=== PATIENT | male | born 1970 | race Caucasian/White ===

== ENCOUNTER 2020-06-08 11:03 | Emergency (ER) | payer OTHER, SELFPAY ==
[2020-06-08] VITALS (20 sets, daily range): BP systolic 118–165; BP diastolic 69–101; PULSE 65–88; RESP 5–39; TEMP 36.2; O2SAT 81–100; BMI 29.4
--- NOTE | 2020-06-08 11:12 | DI.RAD.S_ITS ---
PROCEDURE: XR CHEST 1V INDICATIONS: chest pain TECHNIQUE: One view of the chest was acquired. COMPARISON: [facility], CR, XR THORACIC SPINE 3VW, 08/18/2016, 10:14. FINDINGS: Surgical changes and devices: None. Lungs and pleura: No definite focal airspace opacity. No pleural effusions or pneumothorax. Mediastinum: Mediastinal contours appear unchanged. Heart size is prominent. Bones and chest wall: No suspicious bony lesions. Overlying soft tissues appear unremarkable. IMPRESSION: No definite focal airspace opacity. Prominent heart size. Dictated by: Jaylan Haddad M.D. on 06/08/2020 at 11:47 Approved by: Jaylan Haddad M.D. on 06/08/2020 at 11:47
--- NOTE | 2020-06-08 11:29 | ED.SYNCOPE ---
HPI - Syncope General Chief Complaint: Syncope Stated Complaint: episode this morning passed out driving to job Time Seen by Provider: 06/08/20 11:14 Source: patient and family Mode of arrival: Ambulatory Limitations: no limitations History of Present Illness HPI narrative: Patient a 49-year-old male's history hypertension noncompliant and smoking presents after a syncopal episode. 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 His friends were with him and state he passed out for about 10 minutes. EMS was called and arrived they tried to transport him however patient refused. He wanted would be walk-in clinic who sent him to the ED for evaluation. This morning he says he was feeling okay. He denies any fever chills cough chest pain palpitations. He says he did not eat breakfast it is not typical for him to eat breakfast he has had 3 cups of coffee. MD complaint: loss of consciousness and collapsed Duration of episode: 10 -: minutes(s) Related Data Home Medications Medication Instructions Recorded Confirmed No Known Home Medications 06/08/20 06/08/20 Allergies Allergy/AdvReac Type Severity Reaction Status Date / Time No Known Drug Allergies Allergy Verified 06/08/20 11:21 Review of Systems Review of Systems ROS Unobtainable: All systems reviewed & are unremarkable except as noted in HPI and below Constitutional Constitutional: Denies chills, Denies fever(s), Denies lethargy and Denies weakness Eyes Eyes: Denies change in vision, Denies eye discharge, Denies irritation and Denies loss of vision Cardiovascular Cardiovascular: Denies chest pain, Reports syncope, Denies irregular heart rhythm, Denies leg edema, Denies lightheadedness, Denies palpitations, Reports dyspnea, Denies dyspnea on exertion and Denies orthopnea Respiratory Respiratory: Denies cough, Reports dyspnea, Denies dyspnea on exertion and Reports wheezing Gastrointestinal Gastrointestinal: Denies abdominal pain, Denies change in bowel habits, Denies diarrhea, Denies nausea and Denies vomiting Musculoskeletal Musculoskeletal: Denies back pain and Denies muscle cramps Integumentary/Breasts Skin/Breast: Denies pruritus, Denies erythema, Denies rash and Denies wounds Neurologic Neurologic: Reports syncope, Denies loss of vision and Denies weakness Endocrine Endocrine: Denies palpitations Allergic/Immunologic Allergic/Immunologic: Reports wheezing Patient History Medical History Smoker Social History Smoking Status: Current every day smoker Smoking Status: Current every day smoker tobacco type: cigarettes alcohol intake frequency: 0-2 drinks per day Substance Use Type: does not use Exam Initial Vital Signs Initial Vital Signs: Vital Signs Temperature 97.1 F L 06/08/20 11:05 Pulse Rate 85 06/08/20 11:05 Respiratory Rate 18 06/08/20 11:05 Blood Pressure 165/101 H 06/08/20 11:05 Pulse Oximetry 99 06/08/20 11:05 GENERAL: Alert 49-year-old male appears older than stated age and in no acute distress. HEENT: Head atraumatic,EOMI, pupils reactive, face symmetric, moist mucous membranes CARDIOVASCULAR: Regular rate and rhythm without murmurs, rubs or gallops. RESPIRATORY: Breath sounds equal bilaterally, no wheezes rales or rhonchi. ABDOMEN: Soft, nontender. Normoactive bowel sounds all 4 quadrants. No guarding or rebound. EXTREMITIES: Normal range of motion, no clubbing or edema. Neurovascularly intact NEUROLOGICAL: Alert and oriented x4.Normal gait and speech. Cranial nerves II through XII grossly intact. Good ksosan-va-fpbl, good gvmy-wj-pwps, strength equal bilaterally, no dysarthria or aphasia, sensation in tact to soft touch bilaterally, no visual changes, no facial droop SKIN: Warm, dry, no laceration, no petechiae, no rashes or lesions. Scores NIH Stroke Scale Level of Conciousness: Alert, keenly responsive Ask month/age: Answers both questions correctly. Open/close eyes, close hand: Performs both tasks correctly Best gaze horizontal: Normal Visual nam: No visual loss Facial palsy: Normal symetrical movement Left arm drift: No drift for full 10 sec Right arm drift: No drift for full 10 sec Left leg drift: No drift for full 5 sec Right leg drift: No drift for full 5 sec Limb ataxia: Absent Sensory on face/arms/legs: Normal, no sensory loss Best language: No aphasia, normal Dysarthria: Normal Extinction or inattention: No abnormality Total NIH Stroke scale score: 0 Course Orders Ordered: ED Orders 06/08/20 11:12 XR chest 1V Stat EKG-12 Lead Stat 06/08/20 11:19 BNP [NT-proBNP (BNP-Adult 18+)] Stat Complete Blood Count AUTO DIFF Stat Comprehensive Metabolic Panel Stat D Dimer Stat Lipase Stat Magnesium Stat Partial Thromboplastin Time Stat Prothrombin Time INR Stat Troponin & CK Cardiac Panel Stat 06/08/20 11:29 COVID19 Stat 06/08/20 11:30 CT head/brain wo con Stat 06/08/20 12:05 CT angio head and neck Stat 06/08/20 14:16 Consult to CIRCULATION ASSISTANT - Long Term Care Social Worker Stat Discontinued Medications Albuterol/Ipratropium (Albuterol/Ipratropium 3 Ml Ampul) 3 ml INH NOW ONE Stop: 06/08/20 14:01 Last Admin: 06/08/20 14:01 Dose: 3 ml Documented by: LIZZEI Aspirin (Aspirin 81 Mg Chew Tab) 324 mg PO NOW ONE Stop: 06/08/20 11:13 Last Admin: 06/08/20 11:37 Dose: 324 mg Documented by: NNEKA Vital Signs Vital signs: Vital Signs - 8 hr 06/08/20 11:05 06/08/20 11:10 06/08/20 11:11 Temperature 97.1 F L Pulse Rate 85 86 Respiratory Rate 18 22 Blood Pressure 165/101 H 165/101 H Pulse Oximetry 99 99 06/08/20 11:30 06/08/20 11:53 06/08/20 12:00 Temperature Pulse Rate 80 81 81 Respiratory Rate 22 20 23 Blood Pressure 156/88 H 139/78 Pulse Oximetry 97 98 97 06/08/20 12:15 06/08/20 12:30 06/08/20 12:49 Temperature Pulse Rate 79 76 84 Respiratory Rate 21 18 Blood Pressure 118/75 Pulse Oximetry 97 98 93 06/08/20 12:50 06/08/20 13:00 06/08/20 13:01 Temperature Pulse Rate 76 88 77 Respiratory Rate 19 28 H 19 Blood Pressure 145/80 H 146/73 H Pulse Oximetry 98 81 L 98 06/08/20 13:15 06/08/20 13:30 06/08/20 13:31 Temperature Pulse Rate 67 66 65 Respiratory Rate 5 L 39 H 36 H Blood Pressure 125/69 Pulse Oximetry 98 96 97 06/08/20 13:45 06/08/20 14:00 06/08/20 14:01 Temperature Pulse Rate 69 70 74 Respiratory Rate 24 30 H 14 Blood Pressure 126/75 Pulse Oximetry 98 100 100 06/08/20 14:15 06/08/20 14:30 Temperature Pulse Rate 73 74 Respiratory Rate 19 31 H Blood Pressure Pulse Oximetry 98 MDM - Syncope Lab Data Attestation: I reviewed the patient's lab results. Result diagrams: 06/08/20 11:19 06/08/20 11:19 Labs: Lab Results 06/08/20 06/08/20 06/08/20 Range/Units 11:19 11:19 11:19 WBC 14.0 H (4.5-11.0) X10^3/uL RBC 5.14 (4.5-5.9) X10^6/uL Hgb 15.2 (13.5-17.5) g/dL Hct 46.2 (41-53) % MCV 89.8 (80-100) fL MCH 29.5 (26-34) PG MCHC 32.8 (30-36) % RDW 14.8 (11.6-14.8) % Plt Count 236 (150-400) X10^3/uL Neut % (Auto) 87.1 H (50-75) % Lymph % (Auto) 9.0 L (25-40) % [place] % (Auto) 2.9 L (3-14) % Eos % (Auto) 0.5 L (2-4) % Baso % (Auto) 0.5 (0-2) % Neut # (Auto) 95953 H (1381-0625) /uL Lymph # (Auto) 1300 (7414-7321) /uL [place] # (Auto) 400 (0-900) /uL Eos # (Auto) 100 (0-450) /uL Baso # (Auto) 100 (0-100) /uL PT 10.9 (10.1-12.7) SECONDS INR 1.0 (0.9-1.3) APTT 30 (26.4-36.2) SECONDS D-Dimer < 200 (<230) ng/mL Sodium 137 (137-145) mmol/L Potassium 4.0 (3.4-5.1) mmol/L Chloride 103 (98-107) mmol/L Carbon Dioxide 29 (22-32) mmol/L BUN 10 (9-20) mg/dL Creatinine 0.54 L (0.66-1.25) mg/dL Estimated GFR > 60.0 (>60) mL/min BUN/Creatinine Ratio 18.5 (6-22) Glucose 157 H (70-100) mg/dL Calcium 9.3 (8.4-10.2) mg/dL Magnesium 2.0 (1.6-2.3) mg/dL Total Bilirubin 0.3 (0.2-1.3) mg/dL AST 24 (17-59) IU/L ALT 24 (<50) IU/L Alkaline Phosphatase 80 (38-126) U/L Total Creatine Kinase 72 (55-170) U/L CK-MB (CK-2) TNP CK-MB (CK-2) Rel Index TNP Troponin I < 0.012 (0.01-0.034) ng/mL NT-Pro-B Natriuret Pep 96 (<125) pg/mL Total Protein 7.5 (6.3-8.2) g/dL Albumin 4.4 (3.5-5.0) g/dL Globulin 3.1 (1.7-4.1) g/dL Albumin/Globulin Ratio 1.4 (1.0-2.8) Lipase 35 (23-300) U/L SARS-CoV-2 (PCR) (Negative) 06/08/20 06/08/20 Range/Units 11:19 11:29 WBC (4.5-11.0) X10^3/uL RBC (4.5-5.9) X10^6/uL Hgb (13.5-17.5) g/dL Hct (41-53) % MCV (80-100) fL MCH (26-34) PG MCHC (30-36) % RDW (11.6-14.8) % Plt Count (150-400) X10^3/uL Neut % (Auto) (50-75) % Lymph % (Auto) (25-40) % [place] % (Auto) (3-14) % Eos % (Auto) (2-4) % Baso % (Auto) (0-2) % Neut # (Auto) (3131-7722) /uL Lymph # (Auto) (5868-8575) /uL [place] # (Auto) (0-900) /uL Eos # (Auto) (0-450) /uL Baso # (Auto) (0-100) /uL PT (10.1-12.7) SECONDS INR (0.9-1.3) APTT (26.4-36.2) SECONDS D-Dimer Cancelled (<230) ng/mL Sodium (137-145) mmol/L Potassium (3.4-5.1) mmol/L Chloride (98-107) mmol/L Carbon Dioxide (22-32) mmol/L BUN (9-20) mg/dL Creatinine (0.66-1.25) mg/dL Estimated GFR (>60) mL/min BUN/Creatinine Ratio (6-22) Glucose (70-100) mg/dL Calcium (8.4-10.2) mg/dL Magnesium (1.6-2.3) mg/dL Total Bilirubin (0.2-1.3) mg/dL AST (17-59) IU/L ALT (<50) IU/L Alkaline Phosphatase (38-126) U/L Total Creatine Kinase (55-170) U/L CK-MB (CK-2) CK-MB (CK-2) Rel Index Troponin I (0.01-0.034) ng/mL NT-Pro-B Natriuret Pep (<125) pg/mL Total Protein (6.3-8.2) g/dL Albumin (3.5-5.0) g/dL Globulin (1.7-4.1) g/dL Albumin/Globulin Ratio (1.0-2.8) Lipase (23-300) U/L SARS-CoV-2 (PCR) Negative (Negative) Imaging Data Chest x-ray: Radiologist's Impression: PROCEDURE: XR CHEST 1V INDICATIONS: chest pain TECHNIQUE: One view of the chest was acquired. COMPARISON: [facility], CR, XR THORACIC SPINE 3VW, 08/18/2016, 10:14. FINDINGS: Surgical changes and devices: None. Lungs and pleura: No definite focal airspace opacity. No pleural effusions or pneumothorax. Mediastinum: Mediastinal contours appear unchanged. Heart size is prominent. Bones and chest wall: No suspicious bony lesions. Overlying soft tissues appear unremarkable. IMPRESSION: No definite focal airspace opacity. Prominent heart size. Dictated by: Jaylan Haddad M.D. on 06/08/2020 at 11:47 CT scan - head: Radiologist's Impression: PROCEDURE: CT HEAD/BRAIN WO CON INDICATIONS: syncope TECHNIQUE: Noncontrast 4.5 mm thick angled axial sections acquired from the foramen magnum to the vertex, with coronal and sagittal reformats. For radiation dose reduction, the following was used: automated exposure control, adjustment of mA and/or kV according to patient size. COMPARISON: None. FINDINGS: Image quality: Excellent. CSF spaces: Basal cisterns are patent. No extra-axial fluid collections. Ventricles are normal in size and shape. Brain: No midline shift. No intracranial masses or hemorrhage. Arredondo-white matter interface is normal. Skull and face: Calvarium and visualized facial bones are intact, without suspicious lesions. Sinuses: Visualized sinuses and mastoids are clear. IMPRESSION: No CT evidence of acute intracranial pathology. Dictated by: Tyree Padilla M.D. on 06/08/2020 at 12:31 CTA - brain/neck: Radiologist's Impression: PROCEDURE: CT ANGIO HEAD AND NECK INDICATIONS: syncope TECHNIQUE: Noncontrast images were performed earlier in the day and not repeated. After the administration of intravenous contrast, 1 mm thick sections acquired from the aortic arch through the [place] of Anders. Post-contrast 4.5 mm thick sections then re-acquired from the foramen magnum to the vertex. 3-dimensional uaikeky-lccqrxjgr-qqphimqncz (MIP) and/or volume rendering reformats were acquired of the central intracranial vasculature and neck separately. COMPARISON: [facility], CT, CT HEAD/BRAIN WO CON, 06/08/2020, 11:44. FINDINGS: Image quality: Excellent. BRAIN: CSF spaces: Ventricles are normal in size and shape. Basal cisterns are patent. No extra-axial fluid collections. Brain: No midline shift. No intracranial bleeds or masses. Arredondo-white matter interface appears intact. Skull and face: Calvarium and facial bones appear intact, without suspicious lesions. Orbits appear normal. Sinuses: Sinuses and mastoids are clear. HEAD CT ANGIOGRAPHY: Anterior circulation: Intracranial internal carotid arteries are normal in size and flow. There is a hypoplastic left A1 segment, with a corresponding robust right A1 segment. This is considered to be a normal developmental variant of the [place] of [place], of typically no clinical consequence. The flow within the paired anterior cerebral arteries is otherwise normal and symmetric. The flow within the middle cerebral arteries is normal and symmetric. The anterior communicating artery is seen. No aneurysms are seen. Posterior circulation: Visualized portions of the vertebral arteries demonstrate normal caliber, and join to form a normal appearing basilar artery. Flow within the posterior cerebral arteries is normal and symmetric. No aneurysms are seen. NECK CT ANGIOGRAPHY: Carotid system: The great vessels demonstrate a conventional anatomy as they arise from the aortic arch. The origins of the common carotid arteries appear patent. The common carotid arteries demonstrate normal caliber and courses. The bifurcation regions are both widely patent. The internal carotid arteries demonstrate normal calibers and courses. Posterior circulation: The origins of the vertebral arteries both appear widely patent. The more superior extracranial portions of both vertebral arteries also demonstrate normal courses and calibers. They join to form a normal appearing basilar artery. Soft tissues: Visualized neck soft tissues demonstrate no suspicious abnormalities. Bones: No suspicious bony lesions. Visualized cervical spine appears normally aligned. Degenerative changes are seen, which are worst at the C6-C7. IMPRESSION: No significant intracranial arterial abnormality is seen. Toe alignment abnormalities are seen. Incidental note is made of: Hypoplastic left A1 segment Focal C6-C7 degenerative change. Any quantitative measurements of stenosis were performed using NASCET criteria. Dictated by: Juan Lim M.D. on 06/08/2020 at 12:19 Approved by: Juan Lim M.D. on 06/08/2020 at 12:21 ECG Data Attestation: I personally reviewed and interpreted this ECG as follows: Prior ECG tracings: available for review Interpretation: Rhythm rate 82 p.r. interval [address] changes or T-wave inversions no priors to compare MDM Narrative Medical decision making narrative: Patient is neurologically intact with no focal deficits. Concerning his sounds as though he had a syncopal episode possible vasovagal, he certainly had warning signs that he was going to pass out. Head CT and CT angio are negative D-dimers negative I do not suspect PE. He was given DuoNeb no which he says did not help much. I have had social work consult it who will help get him into a primary care provider who will help release him back to full work. 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 Discharge Plan Departure Patient Disposition: Home Clinical Impression: Syncope Qualifiers: Syncope type: unspecified Qualified Code(s): R55 - Syncope and collapse Instructions: DI for Syncope in Adults (Fainting) Activity Restrictions/Additional Instructions: *You have been diagnosed with syncope *What to do: It is unclear what caused your syncopal episode today. You may require further testing. You need to see a primary care provider before you are cleared to drive *Continue to take medications as directed *Follow up with your primary care provider in 2-3 days Social work [place], will call you to help set up a PCP. You will also need to fill out [employer] paper work. *Return to ER if you should have recurrent episode of passing out, increasing shortness of breath, chest pain, dizziness or any new, worsening or concerning symptoms Prescriptions: No Action No Known Home Medications RF: 0 Referrals: [facility] [Outside] Stand Alone Forms: Work Release Note
[2020-06-08 11:31] LABS: Add Manual Diff / Slide Review NO; Basophils Absolute Auto 100 /uL (0-100); Basophils Percent Auto 0.5 % (0-2); Eosinophils Absolute Auto 100 /uL (0-450); Eosinophils Percent Auto 0.5 % (2-4); Hematocrit 46.2 % (41-53); Hemoglobin 15.2 g/dL (13.5-17.5); Lymphocytes Absolute Auto 1300 /uL (1100-4500); Mean Corpuscular HGB Conc 32.8 % (30-36); Mean Corpuscular Hemoglobin 29.5 PG (26-34); Mean Corpuscular Volume 89.8 fL (80-100); Monocytes Absolute Auto 400 /uL (0-900); Monocytes Percent Auto 2.9 % (3-14); Neutrophils Absolute Auto 12200 /uL (1500-7000); Neutrophils Percent Auto 87.1 % (50-75); Platelet Count 236 X10^3/uL (150-400); Red Blood Cell Count 5.14 X10^6/uL (4.5-5.9); Red Cell Distribution Width 14.8 % (11.6-14.8)
[2020-06-08 11:35] LABS: Prothrombin Time 10.9 SECONDS (10.1-12.7)
[2020-06-08] MEDS: ASPIRIN 81 MG CHEW TAB 324 MG PO (11:37)
[2020-06-08 11:38] LABS: PTT Partial Thromboplastin Tim 30 SECONDS (26.4-36.2)
[2020-06-08 11:41] LABS: Alanine Aminotransferase 24 IU/L (<50); Albumin 4.4 g/dL (3.5-5.0); Albumin Globulin Ratio 1.4 (1.0-2.8); Alkaline Phosphatase 80 U/L (38-126); Aspartate Aminotransferase 24 IU/L (17-59); BUN Creatinine Ratio 18.5 (6-22); Bilirubin Total 0.3 mg/dL (0.2-1.3); Blood Urea Nitrogen 10 mg/dL (9-20); Calcium 9.3 mg/dL (8.4-10.2); Carbon Dioxide 29 mmol/L (22-32); Chloride 103 mmol/L (98-107); Creatine Kinase 72 U/L (55-170); Estimated Glomerular Filt Rate > 60.0 mL/min (>60); Globulin 3.1 g/dL (1.7-4.1); Glucose 157 mg/dL (70-100); HEMOLYSIS 16 (0-50); Lipase 35 U/L (23-300); Sodium 137 mmol/L (137-145); Total Protein 7.5 g/dL (6.3-8.2)
[2020-06-08 11:43] LABS: D Dimer < 200 ng/mL (<230)
[2020-06-08 11:53] LABS: NT-proBNP (BNP-Adult 18+) 96 pg/mL (<125); Troponin I < 0.012 ng/mL (0.01-0.034)
--- NOTE | 2020-06-08 12:05 | DI.CT.S_ITS ---
PROCEDURE: CT ANGIO HEAD AND NECK INDICATIONS: syncope TECHNIQUE: Noncontrast images were performed earlier in the day and not repeated. After the administration of intravenous contrast, 1 mm thick sections acquired from the aortic arch through the [place] of Anders. Post-contrast 4.5 mm thick sections then re-acquired from the foramen magnum to the vertex. 3-dimensional tacxdyz-yiwxfclyu-otbtwrvheb (MIP) and/or volume rendering reformats were acquired of the central intracranial vasculature and neck separately. COMPARISON: [facility], CT, CT HEAD/BRAIN WO CON, 06/08/2020, 11:44. FINDINGS: Image quality: Excellent. BRAIN: CSF spaces: Ventricles are normal in size and shape. Basal cisterns are patent. No extra-axial fluid collections. Brain: No midline shift. No intracranial bleeds or masses. Arredondo-white matter interface appears intact. Skull and face: Calvarium and facial bones appear intact, without suspicious lesions. Orbits appear normal. Sinuses: Sinuses and mastoids are clear. HEAD CT ANGIOGRAPHY: Anterior circulation: Intracranial internal carotid arteries are normal in size and flow. There is a hypoplastic left A1 segment, with a corresponding robust right A1 segment. This is considered to be a normal developmental variant of the [place] of [place], of typically no clinical consequence. The flow within the paired anterior cerebral arteries is otherwise normal and symmetric. The flow within the middle cerebral arteries is normal and symmetric. The anterior communicating artery is seen. No aneurysms are seen. Posterior circulation: Visualized portions of the vertebral arteries demonstrate normal caliber, and join to form a normal appearing basilar artery. Flow within the posterior cerebral arteries is normal and symmetric. No aneurysms are seen. NECK CT ANGIOGRAPHY: Carotid system: The great vessels demonstrate a conventional anatomy as they arise from the aortic arch. The origins of the common carotid arteries appear patent. The common carotid arteries demonstrate normal caliber and courses. The bifurcation regions are both widely patent. The internal carotid arteries demonstrate normal calibers and courses. Posterior circulation: The origins of the vertebral arteries both appear widely patent. The more superior extracranial portions of both vertebral arteries also demonstrate normal courses and calibers. They join to form a normal appearing basilar artery. Soft tissues: Visualized neck soft tissues demonstrate no suspicious abnormalities. Bones: No suspicious bony lesions. Visualized cervical spine appears normally aligned. Degenerative changes are seen, which are worst at the C6-C7. IMPRESSION: No significant intracranial arterial abnormality is seen. Toe alignment abnormalities are seen. Incidental note is made of: Hypoplastic left A1 segment Focal C6-C7 degenerative change. Any quantitative measurements of stenosis were performed using NASCET criteria. Dictated by: Juan Lim M.D. on 06/08/2020 at 12:19 Approved by: Juan Lim M.D. on 06/08/2020 at 12:21
[2020-06-08 12:23] LABS: COVID19 -Nasal RAPID Negative (Negative)
[2020-06-08] MEDS: ALBUTEROL/IPRATROPIUM 3 ML AMPUL INH (14:01)
== END 2020-06-08 15:03 | disposition home or self-care (01) ==
PROVIDERS: Emergency Provider Emergency Medicine
DX: R55 Syncope and collapse (principal); R42 Dizziness and giddiness; R06.02 Shortness of breath; R07.9 Chest pain, unspecified; I10 Essential (primary) hypertension; Z20.822 Contact with and (suspected) exposure to COVID-19; Y99.0 Civilian activity done for income or pay
CPT/HCPCS: 36415; 70450; 70496; 70498; 71045; 80053; 82550; 83690; 83735; 83880; 84484; 85025; 85379; 85610; 85730; 87635; 93005; 94640; 99283; 99284; C9803